=== PATIENT | female | born 1960 | race Caucasian/White ===

== ENCOUNTER 2018-11-01 06:29 | Day surgery (SDC) | payer MEDICAID ==
[2018-11-01] MEDS ORDERED: LIDOCAINE 2% MDV (20MG/ML) 20ML VIAL IV ONE (06:30)
[2018-11-01] MEDS ORDERED: PROPOFOL 10 MG/ML VIAL IV ONE (06:30)
--- NOTE | 2018-11-04 08:20 | Operative Note ---
DATE OF SURGERY: 11/01/2018 SURGEON: Eber Piedra MD OPERATION: COLONOSCOPY. INDICATIONS: This is a 58-year-old female with history of average risk for colorectal cancer who presented for screening colonoscopy. POSTOPERATIVE DIAGNOSES: 1. A 6 mm sessile polyp in the ascending colon that was removed by cold snare. 2. A 6 mm sessile polyp in the descending colon that was removed by cold snare. 3. A 5 mm sessile polyp in the sigmoid colon that was removed by cold snare. 4. Five 5-6 mm sessile polyps in the rectum that were removed by cold snare. 5. Otherwise normal colon and terminal ileal mucosa. ANESTHESIA: Sedation is per Anesthesia. Pulse oximetry was monitored throughout the procedure to maintain O2 saturation of 90% or greater. Supplemental oxygen was administered via nasal cannula. Cardiac and vital signs were monitored throughout the duration of the procedure, and they were stable. The procedure of colonoscopy and risks and alternatives of the procedure, including the risk of bleeding and perforation, among others, were explained to the patient who voiced understanding and agreed to have the procedure done. Physical examination was performed, and the patient was found stable for sedation. PROCEDURE: The patient was placed in the left lateral position. Sedation was initiated. A digital rectal exam was performed and showed some mild external hemorrhoids with no palpable rectal masses. An Olympus PCF-180AL colonoscope was then inserted into the rectum under direct visualization. It was advanced to the cecum without difficulty. The ileocecal valve and appendiceal orifice were identified and photographed. The colonic mucosa was carefully examined upon introduction of the colonoscope. There was a 6 mm sessile polyp in the ascending colon that was noted and was removed by cold snare. The ileocecal valve was intubated and the terminal ileal mucosa was inspected for about 10 cm and it appeared normal. The colonoscope was then withdrawal while carefully examining the colonic mucosal surfaces. The cecum and the rest of the ascending colon mucosa appeared normal. The transverse colon appeared normal. In the descending colon was a 6 mm sessile polyp that was noted and was removed by cold snare. In the sigmoid colon was another 5 mm sessile polyp that was noted and was removed by cold snare. The colonoscope was then withdrawn into the rectum and five 5-6 mm sessile polyps were noted and they were removed by cold snare. Retroflexion revealed grade 1 internal hemorrhoids. There were no other lesions noted. The colonoscope was then withdrawn and the procedure was terminated. The patient tolerated the procedure well without any immediate complications. The patient remained with stable vital signs and was transferred to the recovery room. RECOMMENDATIONS: 1. The patient should be on a high-fiber diet. 2. The patient is to have a repeat colonoscopy for surveillance in 3 or 5 years depending on the histology of the polyps. Thank you for allowing me to participate in the care of your patient. CORI
== END 2018-11-01 08:45 | disposition home or self-care (01) ==
LOC: HOP 06:29
PROVIDERS: ATTEND Internal Medicine Gastroenterology
DX: Z12.11 Encounter for screening for malignant neoplasm of colon (principal); D12.2 Benign neoplasm of ascending colon; D12.5 Benign neoplasm of sigmoid colon; D12.4 Benign neoplasm of descending colon; K62.1 Rectal polyp; I10 Essential (primary) hypertension

== ENCOUNTER 2018-12-19 14:20 | Day surgery (SDC) | payer MEDICAID ==
[2018-12-19] MEDS ORDERED: PROPOFOL 10 MG/ML VIAL IV ONE (14:21)
[2018-12-19] MEDS ORDERED: FENTANYL PF 100MCG/2ML VIAL IV ONE (14:21)
[2018-12-19] MEDS ORDERED: LIDOCAINE 2% MDV (20MG/ML) 20ML VIAL IV ONE (14:21)
--- NOTE | 2018-12-20 07:51 | Operative Note ---
DATE OF SURGERY: 12/19/2018 OPERATION: ESOPHAGOGASTRODUODENOSCOPY with photo. PREOPERATIVE DIAGNOSIS: Hepatitis C and cirrhosis. Rule out varices. POSTOPERATIVE DIAGNOSES: 1. Cwxkn-ae-oyiepi size distal esophageal varices without stigmata of recent hemorrhage. 2. Moderately severe portal hypertensive gastropathy. 3. Punctate erosions of the gastric antrum. PROCEDURE: After informed consent was obtained from the patient, she was placed in the left lateral decubitus position in the endoscopy suite, sedated and monitored by the department of anesthesia. Once sedated, a well-lubricated UOL849 gastroscope was placed in the posterior oropharynx under direct visualization and passed to the proximal, mid, and distal esophagus. In the distal esophagus, there were 3 columns of csnpm-oc-jidbtm-size varices without any stigmata of recent hemorrhage. No other irregularities were noted. The gastric body was then entered demonstrating a mosaic pattern as well as punctate changes and petechiae suggestive of moderately severe portal hypertensive gastropathy. The antrum demonstrated punctate erosions. The duodenum bulb and sweep were unremarkable. J-turn views of the proximal stomach revealed no fundal varices or cardia varices but there were changes consistent with moderately severe portal hypertensive gastropathy. Biopsies were not taken at this time. The endoscope was straightened and removed from the patient with no new findings or abnormalities identified. RECOMMENDATIONS: I would suggest the patient undergo H pylori stool testing for H pylori antigen. I would recommend a repeat upper endoscopy in 1 year. At this point, while it would be helpful if she were placed on a beta-jose juan given her pulmonary issues, this may be detrimental and as such would prefer to repeat her upper endoscopy in 1 year to assess for variceal changes. She should also be on an H2 receptor antagonist which I will provide a prescription. As always, thank you for allowing me to participate in the healthcare of your patients. CC: Dr. Justin PERSAUD
== END 2018-12-19 15:30 | disposition home or self-care (01) ==
LOC: HOP 14:20
PROVIDERS: ATTEND Internal Medicine Gastroenterology
DX: B19.20 Unspecified viral hepatitis C without hepatic coma (principal); K74.60 Unspecified cirrhosis of liver; I85.00 Esophageal varices without bleeding; K76.6 Portal hypertension; K31.89 Other diseases of stomach and duodenum; K25.9 Gastric ulcer, unspecified as acute or chronic, without hemorrhage or perforation